=== PATIENT | female | born 1975 | race Caucasian/White ===

== ENCOUNTER 2017-08-30 18:40 | Emergency (ER) | payer SELFPAY ==
[2017-08-30 18:52] VITALS: BMI 24.9
[2017-08-30 18:54] VITALS: RESP 18
[2017-08-30] MEDS ORDERED: Sodium Chloride 0.9% 1,000 ML IV ONE (20:06)
[2017-08-30] MEDS ORDERED: Iohexol 240 (50 ml) PO ONE (20:08)
--- NOTE | 2017-08-30 20:13 | C.PDOC ---
History Of Present Illness 41 y/o female presents to emergency department with complaint of left sided flank pain since yesterday, worsening tonight. Patient reports taking 2 NSAID's w/o relief. Notes that pain radiates to the left sided abdomen. Denies being , dysuria, hematuria, fever, chills, nausea, vomiting. Chief Complaint (Nursing): Back Pain History Per: Patient History/Exam Limitations: no limitations Onset/Duration Of Symptoms: Days Current Symptoms Are (Timing): Still Present Recent travel outside of the [place]: No Past Medical History Reviewed: Historical Data, Nursing Documentation, Vital Signs Vital Signs: Last Vital Signs Temp 98.5 F 08/30/17 22:58 Pulse 88 08/30/17 22:58 Resp 18 08/30/17 22:58 BP 100/64 08/30/17 22:58 Pulse Ox 100 08/30/17 23:53 - Medical History PMH: No Chronic Diseases Family History: States: Unknown Family Hx - Social History Hx Alcohol Use: No Hx Substance Use: No - Immunization History Hx Tetanus Toxoid Vaccination: No Hx Influenza Vaccination: No Hx Pneumococcal Vaccination: No Review Of Systems Except As Marked, All Systems Reviewed And Found Negative. Constitutional: Negative for: Fever, Chills Respiratory: Negative for: Cough, Shortness of Breath Gastrointestinal: Positive for: Abdominal Pain, Other (Flank Pain). Negative for: Nausea, Vomiting Genitourinary: Negative for: Dysuria, Hematuria Skin: Negative for: Rash Physical Exam - Physical Exam Appears: Non-toxic, Other (mild distress due to pain) Skin: Normal Color, Warm, Dry Head: Atraumatic, Normacephalic Oral Mucosa: Moist Chest: Symmetrical Cardiovascular: Rhythm Regular Respiratory: Normal Breath Sounds, No Rales, No Rhonchi, No Wheezing Gastrointestinal/Abdominal: Soft, No Tenderness, No Guarding, No Rebound Back: CVA Tenderness (Left) Extremity: Normal ROM, Capillary Refill (< 2 sec.) Neurological/Psych: Oriented x3, Normal Speech, Normal Cognition ED Course And Treatment - Laboratory Results Result Diagrams: 08/30/17 20:16 08/30/17 20:16 O2 Sat by Pulse Oximetry: 100 (ra) Pulse Ox Interpretation: Normal Progress Note: CT abdomen/pelvis, bloodwork, UA ordered and reviewed. Treated with Toradol and IVFs. Disposition Counseled Patient/Family Regarding: Diagnosis - Disposition Referrals: at [facility] [Outside] Disposition: HOME/ ROUTINE Disposition Time: 23:49 Condition: STABLE Prescriptions: Acetaminophen [Tylenol 325mg tab] 650 mg PO Q4 #30 tab Nitrofurantoin Macrocrystals [Macrobid] 1 cap PO BID #14 cap Instructions: Abdominal Pain in (ED), Flank Pain (ED), Urinary Tract Infection in (ED) Forms: [employer] (Malay) - POA Present On Arrival: None - Clinical Impression Clinical Impression: Flank pain, Urinary tract infection affecting , - Scribe Statement The provider has reviewed the documentation as recorded by the Scribe Uziel Gonzalez All medical record entries made by the Scribe were at my direction and personally dictated by me. I have reviewed the chart and agree that the record accurately reflects my personal performance of the history, physical exam, medical decision making, and the department course for this patient. I have also personally directed, reviewed, and agree with the discharge instructions and disposition.
[2017-08-30 20:15] LABS: RBC URINE 26 /hpf (0-3); URINE BACTERIA FEW (<OCC); URINE BILIRUBIN NEGATIVE (NEGATIVE); URINE BLOOD 3+ (NEGATIVE); URINE COLOR Yellow (YELLOW); URINE GLUCOSE (UA) NORMAL (Normal); URINE KETONE NEGATIVE (NEGATIVE); URINE LEUKOCYTE ESTERASE TRACE Leu/uL (Negative); URINE PROTEIN 1+ mg/dL (NEGATIVE); URINE UROBILINOGEN NORMAL mg/dL (0.2-1.0); WBC URINE 12 /hpf (0-5)
[2017-08-30 20:19] LABS: BASO # 0.1 K/uL (0.0-0.2); BASO % 0.4 % (0.0-2.0); EOS % 0.2 % (0.0-4.0); HEMATOCRIT 31.4 % (34.0-47.0); LYMPH # 0.8 K/uL (1.0-4.3); LYMPH % 5.7 % (20.0-40.0); MEAN CORPUSCULAR HEMOGLOBIN 27.5 pg (27.0-31.0); MEAN CORPUSCULAR HGB CONC 33.1 g/dL (33.0-37.0); MEAN PLATELET VOLUME 8.5 fL (7.2-11.7); MONO # 0.9 K/uL (0.0-0.8); PLATELET COUNT 281 K/uL (130-400); WHITE BLOOD COUNT 14.7 K/uL (4.8-10.8)
[2017-08-30] MEDS ORDERED: Iohexol 240 (50 ml) ONE ×2 (20:23→20:39)
[2017-08-30] MEDS ORDERED: Sodium Chloride 0.9% 1,000 ML ONE (20:29)
[2017-08-30 20:38] LABS: POTASSIUM 3.5 mmol/L (3.6-5.2)
[2017-08-30 20:40] LABS: BILIRUBIN,TOTAL 0.6 mg/dL (0.2-1.3)
[2017-08-30 20:41] LABS: ALB/GLOB RATIO 1.2 (1.0-2.1); TOTAL PROTEIN 7.1 g/dL (6.3-8.3)
[2017-08-30 23:06] LABS: LARGE PLATELETS PRESENT; NEUTROPHIL 83 % (50-75); SMUDGE CELLS PRESENT; TOTAL CELLS COUNTED 100
--- NOTE | 2017-08-30 23:38 | US ---
EXAM: US Abdomen Complete CLINICAL HISTORY: 41 years old, female; Pain; Abdominal pain; Other: Lt flank pain; Additional info: Left flank pain TECHNIQUE: Real-time ultrasound of the abdomen (complete) with image documentation. COMPARISON: No relevant prior studies available. FINDINGS: Liver: Unremarkable echogenicity and increased in size measuring 18 cm in longitudinal dimension No intrahepatic bile duct dilation. Gallbladder: No acute findings. No gallstones. Common bile duct: No stones. No dilation, measuring 4 mm. Pancreas: Visualization of the pancreas is limited by overlying bowel gas. Right kidney: A 10 mm stone is detected within the lower pole of the right kidney. An extrarenal pelvis is present. No hydronephrosis or obstructing renal calculi. Left Kidney: Moderate left-sided hydronephrosis. Spleen: Unremarkable in echogenicity and size, measuring 10.6 cm in longitudinal dimension. Aorta: Unremarkable. Inferior vena cava: patent. IMPRESSION: Moderate left-sided hydronephrosis. Nonobstructing right renal calculus. Hepatomegaly. Limited evaluation of the pancreas, secondary to overlying bowel gas.
--- NOTE | 2017-08-30 23:45 | US ---
EXAM: US Pelvis Complete, Transabdominal US Pelvis, Transvaginal CLINICAL HISTORY: 41 years old, female; Pain; Other: Lt flank pain; Patient HX: Beta 34.78; Additional info: Pain +hcg TECHNIQUE: Real-time transabdominal and transvaginal pelvic ultrasound (complete) with image documentation. Transvaginal imaging was attempted for better evaluation of the endometrium and adnexa. COMPARISON: No relevant prior studies available. FINDINGS: Uterus/cervix: Unremarkable in echogenicity and size measuring 10.4 x 4.6 x 6.1 cm. The endometrial stripe is prominent, measuring 18 mm. No myometrial mass. An intrauterine device is present. Right ovary: Unremarkable in echogenicity and size measuring 3.0 x 1.2 x 2.3 cm. No mass. Normal blood flow. Left ovary: Unremarkable in echogenicity and size measuring 2.8 x 2.5 x 2.5 cm. No mass. Normal blood flow. Free fluid: No free fluid. Bladder: Unremarkable as visualized. Wall is normal thickness for degree of distention. IMPRESSION: Prominence of the endometrial stripe. Intrauterine device in good position. Bilateral ovarian flow.
[2017-08-31 00:18] VITALS: BP 108/70; PULSE 96; TEMP 98.9; O2SAT 98
== END 2017-08-31 00:21 | disposition home or self-care (01) ==
LOC: C.ER 18:40
DX: O23.41 Unspecified infection of urinary tract in pregnancy, first trimester (principal); R10.9 Unspecified abdominal pain; Z3A.00 Weeks of gestation of pregnancy not specified
CPT/HCPCS: 76700; 76830; 76856; 80053; 81001; 83690; 84702; 84703; 85025; 96374; 96375; 99285; J1885; J2405; J7040; Q9966

== ENCOUNTER 2017-08-31 19:32 | Emergency (ER) | payer SELFPAY ==
[2017-08-31 19:32] VITALS: BMI 24.9
--- NOTE | 2017-08-31 20:40 | C.PDOC ---
History Of Present Illness Patient is a 41 y/o female who presents to the ED with a studio designer and a complaint of left flank pain for the last 3 days. Patient visited ED yesterday for UTI prescription refill. Patient is and admits to having an IUD; denies vaginal bleeding or chills. HCG yesterday was 38. Admits to subjective fever. No other complaints at this time. 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 denies: Chills Recent travel outside of the [place]: No Abnormal Vaginal Bleeding: No Past Medical History Reviewed: Historical Data, Nursing Documentation, Vital Signs Vital Signs: Last Vital Signs Temp 103 F H 08/31/17 19:54 Pulse 123 H 08/31/17 19:54 Resp 18 08/31/17 19:54 BP 119/71 08/31/17 19:54 Pulse Ox 98 08/31/17 23:22 - Medical History PMH: No Chronic Diseases Surgical History: No Surg Hx Family History: States: Unknown Family Hx - Social History Hx Alcohol Use: No Hx Substance Use: No - Immunization History Hx Tetanus Toxoid Vaccination: No Hx Influenza Vaccination: No Hx Pneumococcal Vaccination: No Review Of Systems Constitutional: Positive for: Fever (subjective). Negative for: Chills, Sweats Eyes: Negative for: Redness Cardiovascular: Negative for: Chest Pain Respiratory: Negative for: Shortness of Breath Gastrointestinal: Positive for: Abdominal Pain (left flank) Genitourinary: Positive for: Dysuria. Negative for: Vaginal Bleeding Musculoskeletal: Positive for: Back Pain (left flank) Skin: Negative for: Rash Neurological: Negative for: Weakness Psych: Negative for: Anxiety Physical Exam - Physical Exam Appears: Well, Non-toxic Skin: Warm, Dry Head: Normacephalic Eye(s): bilateral: Normal Inspection Oral Mucosa: Moist Neck: Supple Chest: Symmetrical Cardiovascular: Rhythm Regular, No Murmur Respiratory: No Rales, No Rhonchi, No Wheezing Gastrointestinal/Abdominal: Bowel Sounds, Soft, No Tenderness Back: CVA Tenderness Extremity: Normal ROM Extremity: Left: Unable To Bear Weight, Other, Bilateral: Atraumatic Neurological/Psych: Oriented x3, Normal Speech, Normal Cognition, Other (no focal deficits) Gait: Steady ED Course And Treatment - Laboratory Results Result Diagrams: 08/31/17 21:12 08/31/17 21:12 O2 Sat by Pulse Oximetry: 98 Pulse Ox Interpretation: Normal Progress Note: Blood culture, urine culture, and UA ordered; Rocephin, Pepcid, and IV fluids administered. Against Medical Advice - AMA Patient Left Against Medical Advice: The patient declines admission to the hospital and wishes to leave the Emergency Department. This action is against my medical advice. This decision was made with informed refusal. The patient was told that admission to the hospital is necessary. Explanation of the reasons why were discussed. The risks of leaving were explained to the patient and include, but are not limited to, worsening of known or currently unknown conditions, permanent disability and from undiagnosed or untreated conditions. The patient has the capacity to make this informed decision and understands my explanation of the current medical problem and risks of leaving. The patient voluntarily accepts these risks and signed an AMA form documenting our conversation. The patient was given the opportunity to ask questions and reconsider. The patient was encouraged to return to the Emergency Department at any time for further care. Medical Decision Making Medical Decision Making: spoke with the patient via the studio designer and is aware of the elevated hcg level , but with the presence of the IUD, she will have a miscarriage. Repeated HCG level shows that. Disposition Counseled Patient/Family Regarding: Studies Performed, Diagnosis, Need For Followup - Disposition Referrals: [facility] [Outside] [facility] [Outside] Disposition: AGAINST MEDICAL ADVICE Disposition Time: 20:40 Condition: FAIR Additional Instructions: Please return if symptoms recur, or no improvement. Please take the antibiotics prescribed. Instructions: Acute Pyelonephritis (DC) Forms: [employer] (Dominican) - Clinical Impression Clinical Impression: Flank pain, Fever, Pyelonephritis - Scribe Statement The provider has reviewed the documentation as recorded by the Scribe Joanne Artis All medical record entries made by the Scribe were at my direction and personally dictated by me. I have reviewed the chart and agree that the record accurately reflects my personal performance of the history, physical exam, medical decision making, and the department course for this patient. I have also personally directed, reviewed, and agree with the discharge instructions and disposition.
[2017-08-31] MEDS ORDERED: Sodium Chloride 0.9% 1,000 ML IV ONE (20:47)
[2017-08-31] MEDS ORDERED: cefTRIAXone IV 1 gm in Dextros 50 ML IVPB ONE (21:09)
[2017-08-31 21:15] LABS: BASO % 0.4 % (0.0-2.0); EOS % 0.1 % (0.0-4.0); HEMATOCRIT 29.2 % (34.0-47.0); LYMPH # 0.7 K/uL (1.0-4.3); MEAN CELL VOLUME 83.5 fL (81.0-99.0); MEAN CORPUSCULAR HEMOGLOBIN 27.5 pg (27.0-31.0); MEAN CORPUSCULAR HGB CONC 32.9 g/dL (33.0-37.0); MEAN PLATELET VOLUME 8.9 fL (7.2-11.7); MONO # 0.9 K/uL (0.0-0.8); MONO % 7.7 % (0.0-10.0); PLATELET COUNT 210 K/uL (130-400); WHITE BLOOD COUNT 11.3 K/uL (4.8-10.8)
[2017-08-31 21:15] LABS: VENOUS BLOOD GAS BASE EXCESS -2.3 mmol/L (0.0-2.0); VENOUS BLOOD GAS PCO2 32 mmHg (40-60); VENOUS BLOOD PH 7.43 (7.32-7.43)
[2017-08-31 21:23] LABS: INR 1.5; POTASSIUM 3.9 mmol/L (3.6-5.2)
[2017-08-31 21:25] LABS: BILIRUBIN,TOTAL 0.7 mg/dL (0.2-1.3)
[2017-08-31 21:26] LABS: ALB/GLOB RATIO 1.1 (1.0-2.1); CALCIUM 8.5 mg/dl (8.6-10.4); TOTAL PROTEIN 6.7 g/dL (6.3-8.3)
[2017-08-31 21:47] LABS: NEUTROPHIL 88 % (50-75); TOTAL CELLS COUNTED 100
[2017-08-31 22:30] LABS: RBC URINE 63 /hpf (0-3); URINE BACTERIA MOD (<OCC); URINE BILIRUBIN NEGATIVE (NEGATIVE); URINE BLOOD 2+ (NEGATIVE); URINE COLOR Yellow (YELLOW); URINE GLUCOSE (UA) 1+ mg/dL (Normal); URINE KETONE 1+ mg/dL (NEGATIVE); URINE LEUKOCYTE ESTERASE 2+ Leu/uL (Negative); URINE PROTEIN 2+ mg/dL (NEGATIVE); URINE UROBILINOGEN NORMAL mg/dL (0.2-1.0); WBC CLUMPS MANY /hpf; WBC URINE 13355 /hpf (0-5)
[2017-08-31 23:53] VITALS: BP 122/70; PULSE 81; RESP 20; TEMP 100; O2SAT 99
== END 2017-08-31 23:54 | disposition left against medical advice (07) ==
LOC: C.ER 19:32
DX: N10 Acute pyelonephritis (principal); R50.9 Fever, unspecified; R10.9 Unspecified abdominal pain
CPT/HCPCS: 80053; 81001; 82803; 83690; 84702; 85025; 85610; 85730; 87040; 87086; 96365; 96375; 99285; J0696; J7040